=== PATIENT | male | born 1990 | race Caucasian/White ===

== ENCOUNTER 2018-06-07 15:22 | Emergency (ER) | payer BC ==
[~2018-06-07] VITALS: Ht 180.3 cm; Wt 86.2 kg
[2018-06-07 15:30] VITALS: BP 136/88; Ht 180.3 cm; Wt 86.2 kg
== END 2018-06-07 16:15 | disposition home or self-care (01) ==
LOC: ED 15:22
DX: F41.9 Anxiety disorder, unspecified (principal); R06.4 Hyperventilation; Z88.1 Allergy status to other antibiotic agents

== ENCOUNTER 2018-08-24 15:39 | Emergency (ER) | payer SELFPAY ==
[~2018-08-24] VITALS: Ht 180.3 cm; Wt 86.2 kg
[2018-08-24 15:39] VITALS: Ht 180.3 cm; Wt 86.2 kg
[2018-08-24 17:56] VITALS: BP 123/68
== END 2018-08-24 17:56 | disposition home or self-care (01) ==
LOC: ED 15:39
DX: F41.0 Panic disorder [episodic paroxysmal anxiety] (principal); I86.1 Scrotal varices; F41.9 Anxiety disorder, unspecified; Z88.0 Allergy status to penicillin
CPT/HCPCS: J2060

== ENCOUNTER 2018-08-25 03:05 | Emergency (ER) | payer SELFPAY ==
[~2018-08-25] VITALS: Ht 180.3 cm; Wt 86.2 kg
[2018-08-25 03:07] VITALS: Ht 180.3 cm; Wt 86.2 kg
[2018-08-25 04:19] VITALS: BP 108/54
[2018-08-25 04:45] LABS: AMPHETAMINE QUAL UR POSITIVE (See below)
== END 2018-08-25 04:44 | disposition home or self-care (01) ==
LOC: ED 03:05
PROVIDERS: Emergency Medicine
DX: F41.0 Panic disorder [episodic paroxysmal anxiety] (principal); Z88.0 Allergy status to penicillin
CPT/HCPCS: Q0092